=== PATIENT | male | born 1990 | race African-American/Black ===

== ENCOUNTER 2019-10-03 08:04 | Emergency (ER) | payer BC, SELFPAY ==
[2019-10-03] MEDS ORDERED: Acetaminophen 325 MG TAB ONE (09:06)
[2019-10-03] MEDS ORDERED: Bicillin LA 1.2 MILLION UNITS/2 ML SYRINGE ONE (09:06)
[2019-10-03] MEDS ORDERED: Dexamethasone 10 MG/ML VIAL ONE (09:06)
== END 2019-10-03 09:43 | disposition home or self-care (01) ==
LOC: ERS 08:04
DX: J02.0 Streptococcal pharyngitis (principal)
CPT/HCPCS: 87430; 96372; 99283; J0561; J1100